=== PATIENT | female | born 1965 | race Caucasian/White ===

== ENCOUNTER 2017-01-21 18:09 | Emergency (ER) | payer OTHER ==
[~2017-01-21] VITALS: Ht 162.6 cm; Wt 86.0 kg
[~2017-01-21 18:09] MED LIST: BACT2OIN TOP; BENA25TA8 PO; DICY1TAB26 PO; PERC5TAB12 PO; PRED50TA PO; RANI150 PO; ZOFR4TAB3 SL
[2017-01-21 18:11] VITALS: BP 137/72; PULSE 76; RESP 17; TEMP 98.4; O2SAT 96
[2017-01-21] MEDS ORDERED: OMEP20TA PO (18:52)
[2017-01-21] MEDS ORDERED: RANI300T PO (18:52)
[2017-01-21] MEDS ORDERED: ASPI-110 PO (18:52)
[2017-01-21] MEDS ORDERED: GEMF600T PO (18:52)
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
[2017-01-21] MEDS ORDERED: oxyCODONE/ACETAMINOPHEN 5 MG/325 MG TAB PO ONE (20:45)
[2017-01-21] MEDS ORDERED: ONDANSETRON ODT 4 MG TAB PO ONE (21:00)
[2017-01-21 21:16] VITALS: BP 120/80
== END 2017-01-21 21:20 | disposition home or self-care (01) ==
LOC: NEPD 18:09
DX: S16.1XXA Strain of muscle, fascia and tendon at neck level, initial encounter (principal); V43.52XA Car driver injured in collision with other type car in traffic accident, initial encounter; Y92.414 Local residential or business street as the place of occurrence of the external cause
CPT/HCPCS: 70450; 72125; 99285

== ENCOUNTER 2018-01-23 23:45 | Observation (INO) ==
[2018-01-24] MEDS ORDERED: Sodium Chlor 0.9% Inj 500 ML IV.SIG ONE (00:36)
--- NOTE | 2018-01-24 00:55 | ED ---
HPI General Chief complaint: Chest Pain Stated complaint: chest pain, shoulder pain Time Seen by Provider: 01/24/18 00:36 Source: patient Limitations: no limitations History of Present Illness HPI narrative: The patient is a 52 year old female who presents to the [facility] emergency department with a history of right sided chest pain and shoulder pain that began 2 days. It is severe. It is coming and going. She also has right sided upper abdominal pain that began 3 weeks ago. The pain is worse with eating both in her abdomen and in her chest. She has had n/v x2 today. She has associated shortness of breath. She has a hiatal hernia and is going to have surgery for it 03/[address] Stockton. The patient denies any history of fever, cough, congestion, neck pain, worsening diarrhea (she has this chronically), urinary symptoms, or neurologic symptoms. The patient denies having any prior history of coronary artery disease, DVT, or PE. She denies any family history of DVT or PE. She denies having any lower extremity edema, calf pain, or erythema. The patient denies having any prior history of hypertension, however she does have a history of hyperlipidemia. She denies any history of diabetes. As the patient was being evaluated in the emergency department, the patient reported on reevaluation that her pain was beginning to radiate into the left side of the chest. She also reports having an associated aching sensation in her right upper extremity. LMP: s/p hysterectomy Related Data Home Medications Medication Instructions Recorded Confirmed hydroxyzine pamoate [Vistaril] 25 mg PO Q6-8H PRN 01/24/18 01/24/18 omeprazole 20 mg PO DAILY 01/24/18 01/24/18 rosuvastatin [Crestor] 20 mg PO DAILY 01/24/18 01/24/18 Allergies Allergy/AdvReac Type Severity Reaction Status Date / Time hydromorphone Allergy Severe N/V, SOB, Unverified 01/21/17 18:49 SHAKY *MDRO Multi-Drug Resistant AdvReac Unknown Uncoded 01/21/17 18:49 Organism Review of Systems ROS: all other systems reviewed are negative [facility] Medical History Medical History Hiatal hernia (Acute) Ovarian mass, left (Acute) Surgical History Surgical History History of foot surgery (Acute) History of partial hysterectomy (Acute) History of tonsillectomy (Acute) Social History Social History Substance History: No History of Abuse Second Hand Smoke Exposure: No Smoking Status: Never smoker How Often Do You Have a Drink Containing Alcohol: 2 to 4 times a month Recent Travel in [facility] within the Last 8 Weeks: No Recent Out of Country Travel within the Last 8 Weeks: No Immunization History Tetanus Immunization: >5 Years Hx Influenza Vaccine This Season: No Exam Const General: cooperative, well developed and acute distress (Related to chest pain. ) mild Nutritional Appearance: overweight Orientation: alert, awake and oriented x3 HENMT Head: normocephalic and atraumatic Nose: no nasal discharge and no epistaxis Mouth: moist mucous membranes Throat: posterior oropharynx normal and uvula midline Eyes Sclera: normal sclerae Pupils: PERRL Neck Neck: no meningeal signs, trachea midline and no JVD Resp Effort & Inspection: no use of accessory muscles Auscultation: clear to auscultation bilaterally Cardio Rate: regular rate Rhythm: regular rhythm Heart Sounds: no murmurs GI Inspection: non-distended Palpation: soft, no hepatosplenomegaly, no guarding, not rigid and tender in the epigastrum and in the RUQ; not in the LLQ, not in the RLQ, not in the LUQ, not at McBurney's point, Quiles's sign negative and with no rebound tenderness Auscultation: normal bowel sounds Back/Spine/Pelvis Back: no CVA tenderness Thoracic/Lumbar Spine: other (Tenderness on palpation of the right upper trapezius musculature. No spasm noted.) Skin General: dry skin (warm) Neuro General: alert, awake, oriented x3 and other (Grossly nonfocal.) Speech: speech normal Motor: no movement abnormalities noted Extrem General: normal to inspection, no calf tenderness, no clubbing, no cyanosis and no edema Psych Mood: congruent mood Affect: normal affect Judgment: judgment good Course Initial Documented Vital Signs Temperature 98.3 F 01/24/18 00:16 Pulse Rate 76 01/24/18 00:16 Respiratory Rate 16 01/24/18 00:16 Blood Pressure 189/82 H 01/24/18 00:16 Pulse Oximetry 97 01/24/18 00:16 Last Documented Vital Signs Temperature 98.4 F 01/24/18 07:44 Pulse Rate 69 01/24/18 07:44 Respiratory Rate 18 01/24/18 07:44 Blood Pressure 116/86 01/24/18 07:44 Pulse Oximetry 98 01/24/18 07:44 Clinical Decision Support PERC Rule Age greater than or equal to 50: Yes HR greather than or equal to 100: No Sa02 on room air is less than 95%: No Unilateral Leg Swelling: No Hemoptysis: No Recent Surgery or Trauma: No Prior PE or DVT: No Hormone Use: No Wells' Criteria Questions Clinical Signs and Symptoms of DVT: No PE is primary diagnosis or equally likely: No Heart Rate greater than 100: No Immobilized at least 3 days or Surgery in previous 4 weeks: No Previous, objectively diagnosed PE or DVT: No Hemoptysis: No Malignancy with treatment within 6 months or palliative: No Wells' Criteria Score Wells' Criteria Score: 0 Medical Decision Making MDM Narrative Medical decision making narrative: During the course of the patient's emergency department visit, the patient's history, examination, and differential diagnosis were reviewed with the patient. The patient was placed on a monitoring engineer with oximetry and frequent blood pressure monitoring. The patient had IV access obtained and blood work sent for analysis. A diagnostic evaluation was started regarding the patient's chest pain. The patient was initially provided normal saline IV fluids, aspirin 324 mg p.o. x1, sublingual nitroglycerin x1, nitroglycerin 1 inch the chest wall. The patient's diagnostic studies are remarkable for a white count of 7.2, hemoglobin 13.3, platelets are 251 with 12.5 monocytes, PT PTT within normal limits, d-dimer is less than 0.50 decreasing likelihood of pulmonary embolism in this patient with no other significant risk factors. Chemistry is remarkable for chloride of 108, GFR 73, cardiac enzymes within normal limits, BNP 24, lipase 219. Urinalysis showed no acute abnormality. CHEST X-RAY: No infiltrate, pneumothorax or mediastinal widening. Showed atelectasis in the left lung base, no other acute abnormality, CT scan of the abdomen and pelvis showed no acute abnormality. The patient was agreeable with the plan to proceed with admission to the chest pain center for rule out serial cardiac enzyme protocol followed by stress testing. The patient's results were discussed with the patient, including the plan of care. I explained that further testing and/ or monitoring is indicated based on the patient's history, examination, and/ or laboratory findings. Therefore, I recommended admission for additional evaluation. The patient expressed understanding and was agreeable with this plan. The patient was admitted to the hospital in stable condition and sent to a bed under the care of the [facility]. Medical Screen Exam Complete: Yes Emergency Medical Condition: Yes Differential Diagnosis Differential Diagnosis: Acid reflux, versus biliary colic, versus acute cholecystitis, versus pancreatitis, versus acute coronary syndrome, versus pulmonary embolism, versus pneumothorax, versus pneumonia Medical Records Medical records reviewed: Yes I reviewed the patient's medical records. Lab Data Lab results reviewed: Yes I reviewed the patient's lab results. Result diagrams: 01/24/18 00:45 01/24/18 00:45 Lab Results 01/24/18 01/24/18 01/24/18 Range/Units 00:45 00:45 00:45 WBC 7.2 (4.0-11.0) th/mm3 RBC 4.39 (4.00-5.30) mil/mm3 Hgb 13.3 (11.6-15.3) gm/dL Hct 38.0 (35.0-46.0) % MCV 86.5 (80.0-100.0) fL MCH 30.3 (27.0-34.0) pg MCHC 35.0 (32.0-36.0) % RDW 13.0 (11.6-17.2) % Plt Count 251 (150-450) th/mm3 MPV 6.9 L (7.0-11.0) fL Neut % (Auto) 45.0 (16.0-70.0) % Lymph % (Auto) 39.3 (9.0-44.0) % [place] % (Auto) 12.5 H (0.0-8.0) % Eos % (Auto) 2.1 (0.0-4.0) % Baso % (Auto) 1.1 (0.0-2.0) % Neut # (Auto) 3.2 (1.8-7.7) th/mm3 Lymph # (Auto) 2.8 (1.0-4.8) th/mm3 [place] # (Auto) 0.9 (0.0-0.9) th/mm3 Eos # (Auto) 0.2 (0.0-0.4) th/mm3 Baso # (Auto) 0.1 (0.0-0.2) th/mm3 WBC Differential . Differential Comment Auto diff final PT 10.0 (9.8-11.6) sec INR 1.0 Ratio APTT 26.6 (24.3-30.1) sec D-Dimer Quant (PE/DVT) 0.30 (0.00-0.50) mg/L FEU Sodium 143 (136-145) meq/L Potassium 4.0 (3.5-5.1) meq/L Chloride 108 H (98-107) meq/L Carbon Dioxide 23.3 (21.0-32.0) meq/L Anion Gap 12 (5-15) meq/L BUN 15 (7-18) mg/dL Creatinine 0.83 (0.50-1.00) mg/dL Estimated GFR 73 L (>89) mL/min Random Glucose 92 (74-106) mg/dL Calcium 8.5 (8.5-10.1) mg/dL Magnesium 1.9 (1.5-2.5) mg/dL Total Bilirubin 0.3 (0.2-1.0) mg/dL AST 26 (15-37) U/L ALT 32 (10-53) U/L Alkaline Phosphatase 109 (45-117) U/L Total Creatine Kinase 96 (26-192) U/L Troponin I Less than 0.02 L (0.02-0.05) ng/mL B-Natriuretic Peptide (0-100) pg/mL Total Protein 7.3 (6.4-8.2) g/dL Albumin 3.5 (3.4-5.0) g/dL Lipase 219 (73-393) U/L Urine Color (Yellw/Straw) Urine Clarity (Clear) Urine pH (5.0-8.5) Ur Specific [place] (1.002-1.035) Urine Protein (Neg-Trace) mg/dL Urine Glucose (UA) (Negative) mg/dL Urine Ketones (Negative) mg/dL Urine Occult Blood (Negative) Urine Nitrate (Negative) Urine Bilirubin (Negative) Urine Urobilinogen (Less than 2) mg/dL Ur Leukocyte Esterase (Negative) Urine RBC (0-3) /hpf Urine WBC (0-5) /hpf Ur Squamous Epith Cells (0-5) /hpf Urine Mucus (Occasional) /lpf Micro UA Comment Ur Microscopic Review Urine Culture Comments 01/24/18 01/24/18 01/24/18 Range/Units 00:45 04:21 05:10 WBC (4.0-11.0) th/mm3 RBC (4.00-5.30) mil/mm3 Hgb (11.6-15.3) gm/dL Hct (35.0-46.0) % MCV (80.0-100.0) fL MCH (27.0-34.0) pg MCHC (32.0-36.0) % RDW (11.6-17.2) % Plt Count (150-450) th/mm3 MPV (7.0-11.0) fL Neut % (Auto) (16.0-70.0) % Lymph % (Auto) (9.0-44.0) % [place] % (Auto) (0.0-8.0) % Eos % (Auto) (0.0-4.0) % Baso % (Auto) (0.0-2.0) % Neut # (Auto) (1.8-7.7) th/mm3 Lymph # (Auto) (1.0-4.8) th/mm3 [place] # (Auto) (0.0-0.9) th/mm3 Eos # (Auto) (0.0-0.4) th/mm3 Baso # (Auto) (0.0-0.2) th/mm3 WBC Differential Differential Comment PT (9.8-11.6) sec INR Ratio APTT (24.3-30.1) sec D-Dimer Quant (PE/DVT) (0.00-0.50) mg/L FEU Sodium (136-145) meq/L Potassium (3.5-5.1) meq/L Chloride (98-107) meq/L Carbon Dioxide (21.0-32.0) meq/L Anion Gap (5-15) meq/L BUN (7-18) mg/dL Creatinine (0.50-1.00) mg/dL Estimated GFR (>89) mL/min Random Glucose (74-106) mg/dL Calcium (8.5-10.1) mg/dL Magnesium (1.5-2.5) mg/dL Total Bilirubin (0.2-1.0) mg/dL AST (15-37) U/L ALT (10-53) U/L Alkaline Phosphatase (45-117) U/L Total Creatine Kinase 74 (26-192) U/L Troponin I Less than 0.02 L (0.02-0.05) ng/mL B-Natriuretic Peptide 24 (0-100) pg/mL Total Protein (6.4-8.2) g/dL Albumin (3.4-5.0) g/dL Lipase (73-393) U/L Urine Color Colorless (Yellw/Straw) Urine Clarity Clear (Clear) Urine pH 6.0 (5.0-8.5) Ur Specific [place] 1.026 (1.002-1.035) Urine Protein Negative (Neg-Trace) mg/dL Urine Glucose (UA) Negative (Negative) mg/dL Urine Ketones Negative (Negative) mg/dL Urine Occult Blood Negative (Negative) Urine Nitrate Negative (Negative) Urine Bilirubin Negative (Negative) Urine Urobilinogen Less than 2 (Less than 2) mg/dL Ur Leukocyte Esterase Negative (Negative) Urine RBC Less than 1 (0-3) /hpf Urine WBC Less than 1 (0-5) /hpf Ur Squamous Epith Cells <1 (0-5) /hpf Urine Mucus Few H (Occasional) /lpf Micro UA Comment Culture not ind Ur Microscopic Review Not Reportable Urine Culture Comments Culture not ind Imaging Data Radiologist's impression: Chest X-Ray 01/24/18 00:36 CONCLUSION: 1. Minimal left lung base airspace disease, likely atelectasis. Abdomen/Pelvis CT 01/24/18 02:36 CONCLUSION: 1. No acute CT abnormality in the abdomen or pelvis. 2. Normal appendix. 3. Hepatic steatosis. 4. Colonic diverticulosis without inflammatory change to suggest diverticulitis. Discharge Plan Discharge Disposition Patient Disposition: 30 Still Patient Discharge Details Diagnosis: Chest pain, rule out acute myocardial infarction Physicians Team ED Provider: Lynsey Ba Primary Care Provider: Isreal Carvalho Attending Provider: Elvin Townsend Discharge Interventions Interventions: ED Discharge Assessment Last Done: 01/24/18 04:15 Status ED Status: Left Department Discharge Information Discharge Date/Time: 01/24/18 04:17
[2018-01-24 01:03] LABS: Baso # (Auto) 0.1 th/mm3 (0.0-0.2); Baso % (Auto) 1.1 % (0.0-2.0); Eos # (Auto) 0.2 th/mm3 (0.0-0.4); Eos % (Auto) 2.1 % (0.0-4.0); Hemoglobin 13.3 gm/dL (11.6-15.3); Lymph # (Auto) 2.8 th/mm3 (1.0-4.8); Lymph % (Auto) 39.3 % (9.0-44.0); Mean Corpuscular Hemoglobin 30.3 pg (27.0-34.0); Mean Corpuscular Volume 86.5 fL (80.0-100.0); Mean Platelet Volume 6.9 fL (7.0-11.0); Mono # (Auto) 0.9 th/mm3 (0.0-0.9); Mono % (Auto) 12.5 % (0.0-8.0); Neut # (Auto) 3.2 th/mm3 (1.8-7.7); Platelet Count 251 th/mm3 (150-450); Red Blood Count 4.39 mil/mm3 (4.00-5.30); White Blood Count 7.2 th/mm3 (4.0-11.0)
--- NOTE | 2018-01-24 01:05 | XR ---
EXAM DATE: 01/24/2018 12:36 AM EDT AGE/SEX: 52 years / Female INDICATIONS: Chest pain. CLINICAL DATA: This is the patient's initial encounter. Patient reports that signs and symptoms have been present for 1 day and indicates a pain score of 6/10. MEDICAL/SURGICAL HISTORY: None. None. COMPARISON: No prior exams available for comparison. FINDINGS: Minimal airspace disease at the left lung base. The cardiomediastinal contours are unremarkable. Oss eous structures are intact. CONCLUSION: 1. Minimal left lung base airspace disease, likely atelectasis. Electronically signed by: Niitn Cohen MD 01/24/2018 1:04 AM EDT
[2018-01-24 01:22] LABS: Activated Partial Thrombo Time 26.6 sec (24.3-30.1)
[2018-01-24 01:25] LABS: D-Dimer 0.3 mg/L FEU (0.00-0.50)
[2018-01-24 01:28] LABS: Alanine Aminotransferase 32 U/L (10-53); Albumin 3.5 g/dL (3.4-5.0); Alkaline Phosphatase 109 U/L (45-117); Anion Gap 12 meq/L (5-15); Aspartate Aminotransferase 26 U/L (15-37); Blood Urea Nitrogen 15 mg/dL (7-18); Calcium 8.5 mg/dL (8.5-10.1); Carbon Dioxide 23.3 meq/L (21.0-32.0); Chloride 108 meq/L (98-107); Glomerular Filtration Rate 73 mL/min (>89); Glucose,Random 92 mg/dL (74-106); Lipase 219 U/L (73-393); Magnesium 1.9 mg/dL (1.5-2.5); Sodium 143 meq/L (136-145); Total Protein 7.3 g/dL (6.4-8.2)
[2018-01-24 01:29] LABS: Creatine Kinase 96 U/L (26-192)
--- NOTE | 2018-01-24 03:39 | CT ---
EXAM DATE: 01/24/2018 2:41 AM EDT AGE/SEX: 52 years / Female INDICATIONS: Right upper qaudrant pain. CLINICAL DATA: This is the patient's initial encounter. Patient reports that signs and symptoms have been present for 1 day and indicates a pain score of 9/10. MEDICAL/SURGICAL HISTORY: Hiatal hernia. Tonsillectomy. Partial hysterectomy ORAL CONTRAST: No oral contrast ingested. RADIATION DOSE: 13.36 CTDI (mGy) COMPARISON: No prior exams available for comparison. TECHNIQUE: Multiple contiguous axial images were obtained through the abdomen and pelvis following b olus infusion of 95 ml Omnipaque 350 (iohexol) nonionic water-soluble contrast as a cumulative dose for multiple exams. No oral contrast ingested. Using automated exposure control and adjustment of t he mA and/or kV according to patient size, radiation dose was kept as low as reasonably achievable to obtain optimal diagnostic quality images. DICOM format image data is available electronically for r eview and comparison. FINDINGS: LOWER LUNGS: The visualized lower lungs are clear. LIVER: Diffusely decreased hepatic density without intrahepatic ductal dilatation or significant foc al mass. Gallbladder is decompressed. SPLEEN: Homogeneous density without enlargement. PANCREAS: Unremarkable without mass or calcification. KIDNEYS: Kidneys demonstrate symmetrical enhancement and are symmetrical in size without evidence fo r radiopaque renal calculi or hydronephrosis. ADRENAL GLANDS: Unremarkable. AORTA: Anabel-aneurysmal. BOWEL/MESENTERY: Mild sigmoid diverticulosis. Scattered colonic diverticula. No significant inflamma tory change to suggest diverticulitis. Appendix is visualized and normal in appearance. Remainder of the bowel is normal in caliber without evidence for obstruction. No free fluid or drainable fluid col lections. No free air. ABDOMINAL WALL: Intact. RETROPERITONEUM: No evidence of adenopathy in the retrocrural, para-aortic, or deep pelvic regions. BLADDER: Contours are smooth. REPRODUCTIVE: No abnormal masses or calcifications seen. BONY STRUCTURES: Unremarkable. CONCLUSION: 1. No acute CT abnormality in the abdomen or pelvis. 2. Normal appendix. 3. Hepatic steatosis. 4. Colonic diverticulosis without inflammatory change to suggest diverticulitis. Electronically signed by: Nitin Cohen MD 01/24/2018 3:38 AM EDT
[2018-01-24] MEDS: Acetaminophen 500 MG Tablet PO PRN ×2 (04:57→08:53)
[2018-01-24 05:07] LABS: Creatine Kinase 74 U/L (26-192)
[2018-01-24 05:26] LABS: Bilirubin,Urine Negative (Negative); Clarity,Urine Clear (Clear); Color,Urine Colorless (Yellw/Straw); Glucose,Urine (UA) Negative (Negative); Leukocyte Esterase,Urine Negative (Negative); Mucus,Urine Few /lpf (Occasional); Nitrite,Urine Negative (Negative); Specific Gravity,Urine 1.026 (1.002-1.035); Squamous Epithelial Cell,Urine <1 /hpf (0-5)
[2018-01-24 07:46] VITALS: BP 116/86; PULSE 69; RESP 18; TEMP 98.4; O2SAT 98
[2018-01-24 07:47] LABS: Creatine Kinase 99 U/L (26-192)
--- NOTE | 2018-01-24 08:56 | ECG ---
Date Performed: 01/24/2018 Time Performed: 07:06:40 PTAGE: 52 years EKG: Sinus rhythm POSSIBLE RIGHT VENTRICULAR CONDUCTION DELAY NONSPECIFIC T-WAVE ABNORMALITY BORDERLINE ECG Since PREVIOUS TRACING , no significant change noted DOCTOR: Lucia Orozco Interpretating Date/Time 01/24/2018 08:56:31
--- NOTE | 2018-01-24 08:57 | ECG ---
Date Performed: 01/24/2018 Time Performed: 04:23:55 PTAGE: 52 years EKG: Sinus rhythm POSSIBLE RIGHT VENTRICULAR CONDUCTION DELAY BORDERLINE ECG Since PREVIOUS TRACING , no significant change noted DOCTOR: Lucia Orozco Interpretating Date/Time 01/24/2018 08:57:02
--- NOTE | 2018-01-24 08:58 | ECG ---
Date Performed: 01/24/2018 Time Performed: 00:33:24 PTAGE: 52 years EKG: Sinus rhythm LOW QRS VOLTAGE IN PRECORDIAL LEADS POSSIBLE RIGHT VENTRICULAR CONDUCTION DELAY BORDERLINE ECG Since PREVIOUS TRACING , no significant change noted DOCTOR: Lucia Orozco Interpretating Date/Time 01/24/2018 08:57:47
[2018-01-24] MEDS ORDERED: Regadenoson Inj 0.4 MG/5 ML Syringe IV.PUSH ONE (09:21)
--- NOTE | 2018-01-24 11:04 | NM ---
EXAM DATE: 01/24/2018 9:32 AM EDT AGE/SEX: 52 years / Female INDICATIONS:Angina. . Right chest pain radiating to the right shoulder with nausea and vomiting. CLINICAL DATA: This is the patient's initial encounter. Patient reports that signs and symptoms have been present for 2 days and indicates a pain score of 8/10. MEDICAL/SURGICAL HISTORY: Hiatal hernia. Hysterectomy. Tonsillectomy. COMPARISON: No prior exams available for comparison. DOSE: 8.3 mCi Tc 99m Myoview at rest 26.9 mCi [id number] at stress 0.4 mg Lexiscan STRESS SYMPTOMS: Dyspnea, chest tightness and headache. EJECTION FRACTION: 69 % TECHNIQUE: The patient underwent pharmacologic stress with infusion of prescribed dose. Continuous ECG tracing was monitored during stress. Gated SPECT imaging was performed after stress and conventi onal SPECT imaging was performed at rest. The examination was performed on a SPECT/CT scanner, both attenuation and non-corrected datasets were reviewed. FINDINGS: Distribution: The maximum perfused segment at stress is in the anterior wall. Perfusion Study: The pattern of perfusion at stress is within normal limits. As a summed stress s core of 2. Gated Study: There are intact wall motion and wall thickening without hypokinetic or dyskinetic segm ents. The ejection fraction is calculated at 69%. RISK CATEGORY: Low (<1% Annual Motality Rate) CONCLUSION: 1. No fixed or reversible wall defect to suggest ischemia or infarction. 2. Normal wall motion and calculated ejection fraction. Electronically signed by: Alberto Hancock MD 01/24/2018 11:03 AM EDT
--- NOTE | 2018-01-24 11:39 | P.HPCA ---
History of Present Illness Primary Care Physician: Isreal Carvalho Chief Complaint: Chest pain History of Present Illness: This is a 52-year-old female that presents to ED with history of hiatal hernia and hyperlipidemia with complaint of chest discomfort. She states she has had chest discomforts in the past and talked it up as related to hiatal hernia. States she is scheduled with Dr. Stockton to have surgery to repair hiatal hernia March 03. However the discomfort was different than the typical discomfort. There is a sharp discomfort also began to have a squeezing sensation that began last night at home. Also for the last couple days she has had right shoulder discomfort and was worried that it might have been related to gallbladder or ulcer or hiatal hernia. She felt a little nauseous. The chest discomfort was on the right side of her chest and at times radiate to the center. Lasted for several hours. She was also short of breath with it. She states that her general surgeon was concerned at one point that it may be gallbladder related as well and states that she had a gallbladder ultrasound within the last 2 weeks and that it was normal. Currently feeling okay. Denies , states she had a hysterectomy. History of hiatal hernia and hyperlipidemia. Denies diabetes, CAD, and hypertension. States that her father had an AZ in his late 50s and age 60 of an AZ. She is a lifetime non-smoker. She has a a few drinks 4 times a month. Denies illicit drug use. - Diagnosis (1) Chest pain (2) History of hiatal hernia (3) Hyperlipidemia (4) GERD (gastroesophageal reflux disease) Review of Systems General: Patient denies fevers, chills, and recent travel. HEENT: Patient denies headache, sore throat, difficulty swallowing. Cardiovascular: Has the chest discomfort as mentioned above. Denies sensation of heart beating rapidly or irregularly. No syncope. Denies diaphoresis. Respiratory: She was short of breath. Denies inspirational chest discomfort. Denies coughing wheezing or hemoptysis. GI: She was nauseous. Patient denies vomiting, diarrhea, abdominal pain, bloody stools. Musculoskeletal: Patient denies joint pain or edema. Denies calf pain or edema. Neurovascular: Patient denies numbness, tingling, weakness in extremities. Denies headache. Endocrine: Denies polyuria and polydipsia. Hematologic: Denies easy bruising. Skin: Denies rash or itching. PMFSH - History History Provided By: Patient - Medical History Medical History: Medical History (Last Updated 01/24/18 @ 01:27 by Lynsey Ba MD) Hiatal hernia Ovarian mass, left - Surgical History Surgical History: Surgical History (Last Updated 01/24/18 @ 01:28 by Lynsey Ba MD) History of foot surgery History of partial hysterectomy History of tonsillectomy - Tobacco History Second Hand Smoke Exposure: No Smoking Status: Never smoker - Alcohol History How Often Do You Have a Drink Containing Alcohol: 2 to 4 times a month - Substance Use History Substance History: No History of Abuse - Travel History Recent Travel in the [place] Within the Last 8 Weeks: No Recent Travel Out of the Country Within the Last 8 Weeks: No - Immunization History Tetanus Immunization: >5 Years Hx Influenza Vaccine This Season: No Medications and Allergies Active Medications: Active Medications Acetaminophen (Tylenol) 500 mg PO Q4H PRN PRN Reason: HEADACHE Last Admin: 01/24/18 08:53 Dose: 500 mg Nitroglycerin (Nitro-Bid 2% Oint) 1 inch TOPICAL Q6HR KOJO Last Admin: 01/24/18 06:51 Dose: 1 inch Sodium Chloride (Ns Flush) 2 ml IV.FLUSH UNSCH PRN PRN Reason: FLUSH AFTER USING IV ACCESS Sodium Chloride (Ns Flush) 2 ml IV.FLUSH BID KOJO Last Admin: 01/24/18 08:54 Dose: 2 ml Sodium Chloride (Ns Flush) 2 ml IV.FLUSH PRN PRN PRN Reason: FLUSH AFTER USING IV ACCESS Allergies Allergy/AdvReac Type Severity Reaction Status Date / Time hydromorphone Allergy Severe N/V, SOB, Unverified 01/21/17 18:49 SHAKY *MDRO Multi-Drug Resistant AdvReac Unknown Uncoded 01/21/17 18:49 Organism Home Medications Medication Instructions Recorded Confirmed Type hydroxyzine pamoate [Vistaril] 25 mg PO Q6-8H PRN 01/24/18 01/24/18 History omeprazole 20 mg PO DAILY 01/24/18 01/24/18 History rosuvastatin [Crestor] 20 mg PO DAILY 01/24/18 01/24/18 History Exam Vital signs: Vital Signs 01/24/18 00:16 01/24/18 00:39 01/24/18 03:28 Temperature 98.3 F Pulse Rate 76 76 Respiratory Rate 16 15 Blood Pressure 189/82 H 155/81 H Pulse Oximetry 97 98 01/24/18 04:59 01/24/18 07:44 01/24/18 08:00 Temperature 97.7 F 98.4 F Pulse Rate 62 69 Respiratory Rate 16 18 18 Blood Pressure 121/79 116/86 Pulse Oximetry 97 98 98 Intake & Output 01/23/18 01/24/18 01/24/18 18:59 06:59 18:59 Intake Total 500 / 500 Balance 500 / 500 Weight 87.997 kg Intake: IV 500 / 500 NS Inj 500 ML @ Wide Open IV. 500 / 500 SIG ONCE ONE Rx#:[id number] Other: Date of Last Bowel Movement 01/23/18 01/23/18 Narrative: GENERAL: This is a well-nourished, well-developed patient, in no apparent distress. Patient speaks in clear complete sentences. Patient is pleasant. HEENT: Head is atraumatic and normocephalic. Neck is supple without lymphadenopathy and trachea is midline. No JVD or carotid bruits. CARDIOVASCULAR: Regular rate and rhythm without murmurs, gallops, or rubs. RESPIRATORY: Clear to auscultation. Breath sounds equal bilaterally. No wheezes , rales, or rhonchi. Chest wall is nontender. No use of accessory muscles. GASTROINTESTINAL: Abdomen is nontender, nondistended. Abdomen soft. No obvious pulsatile mass or bruit. No CVA tenderness. Strong femoral pulses bilaterally. Normal bowel sounds in all quadrants. MUSCULOSKELETAL: Patient is moving upper and lower extremities freely. No calf tenderness or edema, no Homans sign. Strong pulses in upper and lower extremities. NEUROLOGICAL: Patient is alert and oriented. Cranial nerves 2-12 are grossly intact. No focal deficits and speech is clear. SKIN: No rash and turgor is normal. Results 01/24/18 00:45 01/24/18 00:45 Cardiac Enzymes 01/24/18 01/24/18 01/24/18 Range/Units 00:45 00:45 04:21 AST 26 (15-37) U/L Troponin I Less than 0.02 L Less than 0.02 L (0.02-0.05) ng/mL B-Natriuretic Peptide 24 (0-100) pg/mL 01/24/18 Range/Units 06:50 AST (15-37) U/L Troponin I Less than 0.02 L (0.02-0.05) ng/mL B-Natriuretic Peptide (0-100) pg/mL Coagulation 01/24/18 01/24/18 Range/Units 00:45 00:45 PT 10.0 (9.8-11.6) sec APTT 26.6 (24.3-30.1) sec B-Natriuretic Peptide 24 (0-100) pg/mL CBC 01/24/18 Range/Units 00:45 WBC 7.2 (4.0-11.0) th/mm3 RBC 4.39 (4.00-5.30) mil/mm3 Hgb 13.3 (11.6-15.3) gm/dL Hct 38.0 (35.0-46.0) % Plt Count 251 (150-450) th/mm3 Neut # (Auto) 3.2 (1.8-7.7) th/mm3 Lymph # (Auto) 2.8 (1.0-4.8) th/mm3 [place] # (Auto) 0.9 (0.0-0.9) th/mm3 Eos # (Auto) 0.2 (0.0-0.4) th/mm3 Baso # (Auto) 0.1 (0.0-0.2) th/mm3 Comprehensive Metabolic Panel 01/24/18 Range/Units 00:45 Sodium 143 (136-145) meq/L Potassium 4.0 (3.5-5.1) meq/L Chloride 108 H (98-107) meq/L Carbon Dioxide 23.3 (21.0-32.0) meq/L BUN 15 (7-18) mg/dL Creatinine 0.83 (0.50-1.00) mg/dL Calcium 8.5 (8.5-10.1) mg/dL AST 26 (15-37) U/L ALT 32 (10-53) U/L Alkaline Phosphatase 109 (45-117) U/L Total Protein 7.3 (6.4-8.2) g/dL Albumin 3.5 (3.4-5.0) g/dL Intake and Output 01/23/18 01/24/18 01/24/18 22:59 06:59 14:59 Intake Total 500 / 500 Balance 500 / 500 Intake: IV 500 / 500 NS Inj 500 ML @ Wide Open IV. 500 / 500 SIG ONCE ONE Rx#:[id number] Other: Date of Last Bowel Movement 01/23/18 01/23/18 Weight 87.997 kg - Imaging and Cardiology Imaging: Impressions Chest X-Ray 01/24/18 00:36 CONCLUSION: 1. Minimal left lung base airspace disease, likely atelectasis. Abdomen/Pelvis CT 01/24/18 02:36 CONCLUSION: 1. No acute CT abnormality in the abdomen or pelvis. 2. Normal appendix. 3. Hepatic steatosis. 4. Colonic diverticulosis without inflammatory change to suggest diverticulitis. Myocardial Perfusion Scan Nuc Med 01/24/18 08:23 CONCLUSION: 1. No fixed or reversible wall defect to suggest ischemia or infarction. 2. Normal wall motion and calculated ejection fraction. EKG interpretations - EKG EKG shows: sinus rhythm (EKGs are sinus rhythm without significant ST segment depressions or elevations.) Caprini VTE Risk Assessment Caprini VTE Risk Assessment: No/Low Risk (score <= 1) Caprini Risk Assessment Model: Point Value = 1 Point Value = 2 Point Value = 3 Point Value = 5 Age 41-60 Minor surgery BMI > 25 kg/m2 Swollen legs Varicose veins or History of unexplained or recurrent spontaneous Oral contraceptives or hormone replacement Sepsis (< 1 month) Serious lung disease, including pneumonia (< 1 month) Abnormal pulmonary function Acute myocardial infarction Congestive heart failure (< 1 month) History of inflammatory bowel disease Medical patient at bed rest Age 61-74 Arthroscopic surgery Major open surgery (> 45 min) Laparoscopic surgery (> 45 min) Malignancy Confined to bed (> 72 hours) Immobilizing plaster cast Central venous access Age >= 75 History of VTE Family history of VTE Factor V Leiden Prothrombin [id number] Lupus anticoagulant Anticardiolipin antibodies Elevated serum homocysteine Heparin-induced thrombocytopenia Other congenital or acquired thrombophilia Stroke (< 1 month) Elective arthroplasty Hip, pelvis, or leg fracture Acute spinal cord injury (< 1 month) Prophylaxis Regimen: Total Risk Factor Score Risk Level Prophylaxis Regimen 0-1 Low Early ambulation 2 Moderate Order ONE of the following: *Sequential Compression Device (SCD) *Heparin 5000 units SQ BID 3-4 Higher Order ONE of the following medications: *Heparin 5000 units SQ TID *Enoxaparin/Lovenox 40 mg SQ daily (WT < 150 kg, CrCl > 30 mL/min) *Enoxaparin/Lovenox 30 mg SQ daily (WT < 150 kg, CrCl > 10-29 mL/min) *Enoxaparin/Lovenox 30 mg SQ BID (WT < 150 kg, CrCl > 30 mL/min) AND/OR *Sequential Compression Device (SCD) 5 or more Highest Order ONE of the following medications: *Heparin 5000 units SQ TID (Preferred with Epidurals) *Enoxaparin/Lovenox 40 mg SQ daily (WT < 150 kg, CrCl > 30 mL/min) *Enoxaparin/Lovenox 30 mg SQ daily (WT < 150 kg, CrCl > 10-29 mL/min) *Enoxaparin/Lovenox 30 mg SQ BID (WT < 150 kg, CrCl > 30 mL/min) AND *Sequential Compression Device (SCD) Assessment and Plan - Assessment (1) Chest pain Code(s): R07.9 - Chest pain, unspecified Status: Acute (2) History of hiatal hernia Code(s): Z87.19 - Personal history of other diseases of the digestive system Status: Acute (3) Hyperlipidemia Code(s): E78.5 - Hyperlipidemia, unspecified Status: Acute (4) GERD (gastroesophageal reflux disease) Code(s): K21.9 - Gastro-esophageal reflux disease without esophagitis Status: Acute - Plan * Chest pain: Patient had serial cardiac enzymes and EKGs for ruling out purposes. She was evaluated by Dr. Orozco of cardiology in the chest pain center. States she would not pill walk on a treadmill subsequent Lexiscan has been ordered. She had when these little over a year ago with Dr. Dowling and states it was okay and has not followed up since. If her stress test is nonischemic today, she will be discharged home with instructions to follow-up with her surgeon and PCP. She may need follow-up with cardiology of her surgeon requires clearance. Return to ED for interval issues. * History of hiatal hernia: Follow-up with her general surgeon. * GERD: Continue medication. * Hyperlipidemia: Continue medication. Patient is stable at this time. She is agreeable to this plan. H&P: Quality - VTE Deep Vein Thrombosis/Pulmonary Embolism Present on Admission: No
--- NOTE | 2018-01-24 16:29 | TR ---
Date Performed: 01/24/2018 Time Performed: 09:50:24 DOCTOR: Lucia Orozco DRUG LIST: CLINICAL HISTORY: REASON FOR TEST: REASON FOR ENDING: OBSERVATION: CONCLUSION: Lexiscan stress test was performed under standard four minute protocol. Radionuclid e was injected one minute prior to ending the test. No electrocardiographic abormalities were present to suggest ischemia. Nuclear imaging and interpretation are pending. COMMENTS:
== END 2018-01-24 12:00 | disposition home or self-care (01) ==
LOC: NEDA 23:45 → NEPE 23:45 → NEDA 01-24 04:17 → NEPHCDU 01-24 04:34
PROVIDERS: ADMIT Internal Medicine Cardiovascular Disease; ATTEND Internal Medicine Cardiovascular Disease
DX: Z90.710 Acquired absence of both cervix and uterus; K44.9 Diaphragmatic hernia without obstruction or gangrene; R94.31 Abnormal electrocardiogram [ECG] [EKG]; E78.5 Hyperlipidemia, unspecified; Z16.24 Resistance to multiple antibiotics; R07.9 Chest pain, unspecified; K21.9 Gastro-esophageal reflux disease without esophagitis; Z82.49 Family history of ischemic heart disease and other diseases of the circulatory system

== ENCOUNTER 2018-01-26 20:11 | Observation (INO) ==
[2018-01-26] MEDS ORDERED: Famotidine PF Inj 20 MG/2 ML Vial IV.PUSH ONE (20:39)
[2018-01-26] MEDS ORDERED: Morphine Sulfate Inj 2 MG/ML Vial IV.PUSH ONE (20:39)
[2018-01-26] MEDS ORDERED: Sod Chloride 0.9% Inj 1,000 ML IV.CONT SCH (20:45)
--- NOTE | 2018-01-26 21:01 | ED ---
HPI General Chief Complaint: Chest Pain Stated Complaint: pain in side/back/chest Time Seen by Provider: 01/26/18 20:26 Source: patient Mode of arrival: ambulatory Limitations: no limitations History of Present Illness HPI narrative: 52-year-old female complains of right upper quadrant abdominal pain, right flank pain the right-sided chest pain. Patient states that the symptoms started a month ago. Patient states that the pain is sharp pain started on the right upper quadrant, right flank area with radiation to right shoulder area. Patient states that the pain has been constant for the past month. Patient states that the pain is worse with eating. Patient complaint intermittent nausea vomiting with the pain. Patient states that she has low- grade fever at home. Patient has history of elevated triglyceride level. Patient denies history hypertension, diabetes. Patient was seen by personal physician, organ tuner and surgeon. Patient had endoscopy done by Dr. Gaytan last month which showed hiatal hernia. Patient was seen in emergency room [address] scan abdomen pelvis done which was normal. Patient was admitted to the chest pain center and stress test were negative. Patient was referred to Dr. Stockton, local surgeon. Patient pending surgery March 03 for hiatal hernia. Patient was advised by Dr. Stockton to come to the emergency room today to be admitted and to have HIDA scan done and pending cholecystectomy surgery tomorrow. MD complaint: Reports abdominal pain Onset (ago): week(s) Pain Consistency: constant Location: Reports RUQ and R flank Severity: moderate Severity scale (1-10): 7 Quality: Reports sharp Radiation: Reports chest Migration to: Reports no migration Relieving factors: nothing Exacerbating factors: eating Associated symptoms: Reports nausea, vomiting and anorexia Related Data Home Medications Medication Instructions Recorded Confirmed hydroxyzine pamoate [Vistaril] 25 mg PO Q6-8H PRN 01/24/18 01/26/18 omeprazole 20 mg PO DAILY 01/24/18 01/26/18 rosuvastatin [Crestor] 20 mg PO DAILY 01/24/18 01/26/18 Allergies Allergy/AdvReac Type Severity Reaction Status Date / Time hydromorphone Allergy Severe N/V, SOB, Unverified 01/21/17 18:49 SHAKY *MDRO Multi-Drug Resistant AdvReac Unknown Uncoded 01/21/17 18:49 Organism Review of Systems ROS: all other systems reviewed are negative [facility] Medical History Medical History Hiatal hernia (Acute) Ovarian mass, left (Acute) Surgical History Surgical History History of foot surgery (Acute) History of partial hysterectomy (Acute) History of tonsillectomy (Acute) Social History Social History Substance History: No History of Abuse Second Hand Smoke Exposure: No Smoking Status: Never smoker How Often Do You Have a Drink Containing Alcohol: 2 to 4 times a month Recent Travel in [facility] within the Last 8 Weeks: No Recent Out of Country Travel within the Last 8 Weeks: No Immunization History Tetanus Immunization: Unsure Hx Influenza Vaccine This Season: No Exam Narrative Exam Narrative: GENERAL: Well-nourished, well-developed patient. SKIN: Focused skin assessment warm/dry. HEAD: Normocephalic. EYES: No scleral icterus. No injection or drainage. NECK: Supple, trachea midline. No JVD or lymphadenopathy. CARDIOVASCULAR: Regular rate and rhythm without murmurs, gallops, or rubs. RESPIRATORY: Breath sounds equal bilaterally. No accessory muscle use. GASTROINTESTINAL: Abdomen soft, non-tender, nondistended. MUSCULOSKELETAL: No cyanosis, or edema. BACK: Nontender without obvious deformity. No CVA tenderness. Course Initial Documented Vital Signs Temperature 97.4 F L 01/26/18 20:22 Pulse Rate 102 H 01/26/18 20:22 Respiratory Rate 16 01/26/18 20:22 Blood Pressure 153/78 H 01/26/18 20:22 Pulse Oximetry 97 01/26/18 20:22 Last Documented Vital Signs Temperature 97.4 F L 01/26/18 20:22 Pulse Rate 92 H 01/26/18 20:39 Respiratory Rate 18 01/26/18 20:39 Blood Pressure 167/83 H 01/26/18 20:39 Pulse Oximetry 96 01/26/18 20:39 Medical Decision Making MDM Narrative Medical decision making narrative: 52-year-old female with right upper quadrant abdominal pain, right flank pain with radiation to right chest. Patient will have HIDA scan done tonight and admit to surgery for cholecystectomy tomorrow Medical Screen Exam Complete: Yes Emergency Medical Condition: Yes Differential Diagnosis Differential Diagnosis: Differential diagnosis including cholecystitis, nephrolithiasis, pyelonephritis, pleurisy. Lab Data Lab results reviewed: Yes I reviewed the patient's lab results. Result diagrams: 01/26/18 20:55 01/26/18 20:55 Lab Results 01/26/18 01/26/18 01/26/18 Range/Units 20:55 20:55 20:55 WBC 7.9 (4.0-11.0) th/mm3 RBC 4.83 (4.00-5.30) mil/mm3 Hgb 14.5 (11.6-15.3) gm/dL Hct 42.3 (35.0-46.0) % MCV 87.6 (80.0-100.0) fL MCH 30.0 (27.0-34.0) pg MCHC 34.2 (32.0-36.0) % RDW 13.3 (11.6-17.2) % Plt Count 286 (150-450) th/mm3 MPV 6.6 L (7.0-11.0) fL Neut % (Auto) 48.8 (16.0-70.0) % Lymph % (Auto) 37.9 (9.0-44.0) % [place] % (Auto) 10.5 H (0.0-8.0) % Eos % (Auto) 1.9 (0.0-4.0) % Baso % (Auto) 0.9 (0.0-2.0) % Neut # (Auto) 3.9 (1.8-7.7) th/mm3 Lymph # (Auto) 3.0 (1.0-4.8) th/mm3 [place] # (Auto) 0.8 (0.0-0.9) th/mm3 Eos # (Auto) 0.2 (0.0-0.4) th/mm3 Baso # (Auto) 0.1 (0.0-0.2) th/mm3 WBC Differential . Differential Comment Auto diff final PT 9.7 L (9.8-11.6) sec INR 1.0 Ratio APTT 26.2 (24.3-30.1) sec Sodium (136-145) meq/L Potassium (3.5-5.1) meq/L Chloride (98-107) meq/L Carbon Dioxide (21.0-32.0) meq/L Anion Gap (5-15) meq/L BUN (7-18) mg/dL Creatinine (0.50-1.00) mg/dL Estimated GFR (>89) mL/min Random Glucose (74-106) mg/dL Calcium (8.5-10.1) mg/dL Total Bilirubin (0.2-1.0) mg/dL AST (15-37) U/L ALT (10-53) U/L Alkaline Phosphatase (45-117) U/L Troponin I Less than 0.02 L (0.02-0.05) ng/mL Total Protein (6.4-8.2) g/dL Albumin (3.4-5.0) g/dL Lipase (73-393) U/L 01/26/18 Range/Units 20:55 WBC (4.0-11.0) th/mm3 RBC (4.00-5.30) mil/mm3 Hgb (11.6-15.3) gm/dL Hct (35.0-46.0) % MCV (80.0-100.0) fL MCH (27.0-34.0) pg MCHC (32.0-36.0) % RDW (11.6-17.2) % Plt Count (150-450) th/mm3 MPV (7.0-11.0) fL Neut % (Auto) (16.0-70.0) % Lymph % (Auto) (9.0-44.0) % [place] % (Auto) (0.0-8.0) % Eos % (Auto) (0.0-4.0) % Baso % (Auto) (0.0-2.0) % Neut # (Auto) (1.8-7.7) th/mm3 Lymph # (Auto) (1.0-4.8) th/mm3 [place] # (Auto) (0.0-0.9) th/mm3 Eos # (Auto) (0.0-0.4) th/mm3 Baso # (Auto) (0.0-0.2) th/mm3 WBC Differential Differential Comment PT (9.8-11.6) sec INR Ratio APTT (24.3-30.1) sec Sodium 139 (136-145) meq/L Potassium 4.0 (3.5-5.1) meq/L Chloride 105 (98-107) meq/L Carbon Dioxide 22.5 (21.0-32.0) meq/L Anion Gap 12 (5-15) meq/L BUN 15 (7-18) mg/dL Creatinine 0.96 (0.50-1.00) mg/dL Estimated GFR 62 L (>89) mL/min Random Glucose 114 H (74-106) mg/dL Calcium 9.1 (8.5-10.1) mg/dL Total Bilirubin 0.4 (0.2-1.0) mg/dL AST 32 (15-37) U/L ALT 40 (10-53) U/L Alkaline Phosphatase 93 (45-117) U/L Troponin I (0.02-0.05) ng/mL Total Protein 8.2 D (6.4-8.2) g/dL Albumin 4.0 (3.4-5.0) g/dL Lipase 169 (73-393) U/L Discharge Plan Discharge Disposition Patient Disposition: 30 Still Patient Discharge Details Diagnosis: Gallbladder colic Physicians Team ED Provider: Jose Antonio Quiroga Primary Care Provider: UNKNOWN, Rxs /Orders / Referrals /Forms Prescriptions: No Action omeprazole 20 mg Capsule,Delayed Release(Dr/Ec) 20 mg PO DAILY RF: 0 hydroxyzine pamoate [Vistaril] 25 mg Capsule 25 mg PO Q6-8H PRN (Reason: Anxiety) RF: 0 rosuvastatin [Crestor] 5 mg Tablet 20 mg PO DAILY RF: 0 Discharge Instructions Patient Printed Instructions: Chest Pain (ED), Laparoscopic Cholecystectomy (DC ) Discharge Interventions Interventions: Vital Signs Last Done: 01/26/18 20:39 Status ED Status: With Doctor
[2018-01-26 21:12] LABS: Baso # (Auto) 0.1 th/mm3 (0.0-0.2); Baso % (Auto) 0.9 % (0.0-2.0); Eos # (Auto) 0.2 th/mm3 (0.0-0.4); Eos % (Auto) 1.9 % (0.0-4.0); Hematocrit 42.3 % (35.0-46.0); Hemoglobin 14.5 gm/dL (11.6-15.3); Lymph % (Auto) 37.9 % (9.0-44.0); Mean Corpuscular HGB Conc 34.2 % (32.0-36.0); Mean Corpuscular Volume 87.6 fL (80.0-100.0); Mean Platelet Volume 6.6 fL (7.0-11.0); Mono # (Auto) 0.8 th/mm3 (0.0-0.9); Mono % (Auto) 10.5 % (0.0-8.0); Neut # (Auto) 3.9 th/mm3 (1.8-7.7); Neut % (Auto) 48.8 % (16.0-70.0); Platelet Count 286 th/mm3 (150-450); Red Blood Count 4.83 mil/mm3 (4.00-5.30); Red Cell Distribution Width 13.3 % (11.6-17.2); White Blood Count 7.9 th/mm3 (4.0-11.0)
[2018-01-26 21:23] LABS: Activated Partial Thrombo Time 26.2 sec (24.3-30.1); Prothrombin Time 9.7 sec (9.8-11.6)
[2018-01-26 21:28] LABS: Alanine Aminotransferase 40 U/L (10-53)
[2018-01-26 21:31] LABS: Alkaline Phosphatase 93 U/L (45-117); Total Protein 8.2 g/dL (6.4-8.2)
[2018-01-26 21:32] LABS: Anion Gap 12 meq/L (5-15); Aspartate Aminotransferase 32 U/L (15-37); Blood Urea Nitrogen 15 mg/dL (7-18); Calcium 9.1 mg/dL (8.5-10.1); Carbon Dioxide 22.5 meq/L (21.0-32.0); Chloride 105 meq/L (98-107); Glomerular Filtration Rate 62 mL/min (>89); Glucose,Random 114 mg/dL (74-106); Lipase 169 U/L (73-393); Sodium 139 meq/L (136-145)
[2018-01-26] MEDS ORDERED: Sincalide Inj 5 MCG Vial ONE (23:00)
--- NOTE | 2018-01-27 00:11 | NM ---
EXAM DATE: 01/26/2018 8:49 PM EDT AGE/SEX: 52 years / Female INDICATIONS: Right upper quadrant pain, right flank pain and right sided chest pain. CLINICAL DATA: This is the patient's initial encounter. Patient reports that signs and symptoms have been present for 1 month and indicates a pain score of 2/10. MEDICAL/SURGICAL HISTORY: . Hiatal hernia and left ovarian mass. . Partial hysterectomy, tonsi llectomy, and foot surgery. COMPARISON: No prior exams available for comparison. DOSE: 4.1 mCi Tc-99m mebrofenin i.v. Medication: 1.8 mcg Cholecystokinin IV Atypical symptomatic response Cholecystokinin was administered by slow infusion over 8 minutes beginning at 60 minutes. TECHNIQUE: Following the intravenous administration of radiotracer, dynamic sequential images were pe rformed with continuous acquisition. Time-activity curves were generated. FINDINGS: Hepatic Kinetics: There is prompt uptake of radiotracer in the liver. No focal defects are seen. Ther e is normal rate of washout from the hepatic parenchyma. Biliary Clearance: Activity is first seen in the extrahepatic biliary system at 20 minutes. There is normal excretion into the small bowel. Gallbladder: Activity is first seen in the gallbladder at 30 minutes. Post-CCK: After CCK administration, there is emptying of the gallbladder with a 40% ejection fraction . Common bile duct kinetics are normal and there is no evidence of biliary obstruction. Atypical sym ptomatic response after cholecystokinin infusion. Biliary-Enteric Reflux: None observed. CONCLUSION: 1. Negative biliary scan Electronically signed by: Elvin Sargent MD 01/27/2018 12:10 AM EDT
[2018-01-27] MEDS ORDERED: Morphine Sulfate Inj 2 MG/ML Vial IV.PUSH ONE (00:13)
[2018-01-27] MEDS ORDERED: Bisacodyl 10 MG Supp RECTAL PRN (00:31)
[2018-01-27 00:35] LABS: Bacteria,Urine Rare /hpf; Bilirubin,Urine Negative (Negative); Clarity,Urine Clear (Clear); Color,Urine Straw (Yellw/Straw); Glucose,Urine (UA) Negative (Negative); Leukocyte Esterase,Urine Negative (Negative); Mucus,Urine Few /lpf (Occasional); Nitrite,Urine Negative (Negative); Specific Gravity,Urine 1.013 (1.002-1.035)
--- NOTE | 2018-01-27 00:38 | P.HP ---
History of Present Illness Service: [facility] Primary Care Physician: UNKNOWN History of Present Illness: 52-year-old female with past medical history significant for hiatal hernia, GERD and hyperlipidemia presents the emergency department for evaluation of abdominal pain. The patient reports she was last seen in the ED on Tuesday night where she had an ACS rule out which was negative. She endorses abdominal pain since Tuesday with associated nausea and vomiting. She states the pain radiates to her right shoulder. She also endorses subjective fever/chills. She was advised to come to the emergency department by her surgeon, Dr. Stockton , for a HIDA scan and possible cholecystectomy. Inpatient Certification: I certify that the inpatient services were ordered in accordance with Medicare regulations governing the order. This includes certification that hospital inpatient services are reasonable and necessary and in the case of services not specified as inpatient-only under 42 CFR 419.22(n), that they are appropriately provided as inpatient services in accordance to with the 2-midnight benchmark under 43 CFR 412.3(e) Review of Systems All other systems reviewed negative except as stated [facility] - History History Provided By: Patient - Medical History Medical History: Medical History (Last Updated 01/27/18 @ 00:36 by Jaclyn Prince MD) GERD (gastroesophageal reflux disease) Hyperlipidemia Hiatal hernia Ovarian mass, left - Surgical History Surgical History: Surgical History (Last Reviewed 01/27/18 @ 00:36 by Jaclyn Prince MD) History of foot surgery History of partial hysterectomy History of tonsillectomy - Family History Family History: Family History (Last Updated 01/27/18 @ 00:36 by Jaclyn Prince MD) Other Coronary artery disease - Tobacco History Second Hand Smoke Exposure: No Smoking Status: Never smoker - Alcohol History How Often Do You Have a Drink Containing Alcohol: 2 to 4 times a month - Substance Use History Substance History: No History of Abuse - Travel History Recent Travel in the [place] Within the Last 8 Weeks: No Recent Travel Out of the Country Within the Last 8 Weeks: No - Immunization History Tetanus Immunization: Unsure Hx Influenza Vaccine This Season: No Medications and Allergies Active Medications: Active Medications Al Hydroxide/Mg Hydroxide (Milk Of Magnesia Liq) 30 ml PO Q12H PRN PRN Reason: Mild Constipation Bisacodyl (Dulcolax Supp) 10 mg RECTAL DAILY PRN PRN Reason: SEVERE CONSITIPATION Sodium Chloride (Ns Inj) 1,000 mls @ 125 mls/hr IV.CONT .Q8H KOJO Stop: 01/27/18 04:44 Last Admin: 01/26/18 21:23 Dose: 125 mls/hr Sodium Chloride (Ns Inj) 1,000 mls @ 100 mls/hr IV.CONT .Q10H KOJO Lactulose (Lactulose Liq) 30 ml PO DAILY PRN PRN Reason: SEVERE CONSITIPATION Morphine Sulfate (Morphine Inj) 2 mg IV.PUSH Q4H PRN PRN Reason: pain 6-10 Ondansetron HCl (Zofran Inj) 4 mg IV.PUSH Q6H PRN PRN Reason: NAUSEA OR VOMITING Pantoprazole Sodium (Protonix Inj) 40 mg IV.PUSH Q24H KOJO Senna/Docusate Sodium (Daria-Colace) 1 tab PO BID KOJO Sennosides (Senokot) 17.2 mg PO Q12H PRN PRN Reason: Moderate Constipation Allergies Allergy/AdvReac Type Severity Reaction Status Date / Time hydromorphone Allergy Severe N/V, SOB, Unverified 01/21/17 18:49 SHAKY *MDRO Multi-Drug Resistant AdvReac Unknown Uncoded 01/21/17 18:49 Organism Home Medications Medication Instructions Recorded Confirmed Type hydroxyzine pamoate [Vistaril] 25 mg PO Q6-8H PRN 01/24/18 01/26/18 History omeprazole 20 mg PO DAILY 01/24/18 01/26/18 History rosuvastatin [Crestor] 20 mg PO DAILY 01/24/18 01/26/18 History Exam Vital signs: Vital Signs 01/26/18 20:22 01/26/18 20:39 01/27/18 00:14 Temperature 97.4 F L Pulse Rate 102 H 92 H 75 Respiratory Rate 16 18 22 Blood Pressure 153/78 H 167/83 H 127/84 Pulse Oximetry 97 96 97 Intake & Output 01/26/18 01/26/18 01/27/18 06:59 18:59 06:59 Weight 87.997 kg Narrative: Gen.: No acute distress Head: Normocephalic. Atraumatic. EENT: Pupils equal round and reactive to light. Nose without drainage. Airway intact. Throat without injection. Cardiovascular: Regular rate and rhythm. No murmurs, rubs or gallops. Respiratory: Lungs clear to auscultation bilaterally. No wheezes or rhonchi. Abdomen: Soft, diffusely tender to palpation, nondistended. No peritoneal signs. Musculoskeletal: No gross deformities. No edema. Skin: No obvious rashes or erythema. Neuro: Sensory and motor grossly intact. Cranial nerves II through XII grossly intact. Results - Labs CBC & Chem 7: 01/26/18 20:55 01/26/18 20:55 Labs: Laboratory Results - last 24 hr 01/26/18 01/26/18 01/26/18 20:55 20:55 20:55 WBC 7.9 RBC 4.83 Hgb 14.5 Hct 42.3 MCV 87.6 MCH 30.0 MCHC 34.2 RDW 13.3 Plt Count 286 MPV 6.6 L Neut % (Auto) 48.8 Lymph % (Auto) 37.9 [place] % (Auto) 10.5 H Eos % (Auto) 1.9 Baso % (Auto) 0.9 Neut # (Auto) 3.9 Lymph # (Auto) 3.0 [place] # (Auto) 0.8 Eos # (Auto) 0.2 Baso # (Auto) 0.1 WBC Differential . Differential Comment Auto diff final PT 9.7 L INR 1.0 APTT 26.2 Sodium Potassium Chloride Carbon Dioxide Anion Gap BUN Creatinine Estimated GFR Random Glucose Calcium Total Bilirubin AST ALT Alkaline Phosphatase Troponin I Less than 0.02 L Total Protein Albumin Lipase 01/26/18 20:55 WBC RBC Hgb Hct MCV MCH MCHC RDW Plt Count MPV Neut % (Auto) Lymph % (Auto) [place] % (Auto) Eos % (Auto) Baso % (Auto) Neut # (Auto) Lymph # (Auto) [place] # (Auto) Eos # (Auto) Baso # (Auto) WBC Differential Differential Comment PT INR APTT Sodium 139 Potassium 4.0 Chloride 105 Carbon Dioxide 22.5 Anion Gap 12 BUN 15 Creatinine 0.96 Estimated GFR 62 L Random Glucose 114 H Calcium 9.1 Total Bilirubin 0.4 AST 32 ALT 40 Alkaline Phosphatase 93 Troponin I Total Protein 8.2 D Albumin 4.0 Lipase 169 - Imaging Impressions Bile Acid Absorption NM 01/26/18 20:49 CONCLUSION: 1. Negative biliary scan Caprini VTE Risk Assessment Caprini VTE Risk Assessment: No/Low Risk (score <= 1) Caprini Risk Assessment Model: Point Value = 1 Point Value = 2 Point Value = 3 Point Value = 5 Age 41-60 Minor surgery BMI > 25 kg/m2 Swollen legs Varicose veins or History of unexplained or recurrent spontaneous Oral contraceptives or hormone replacement Sepsis (< 1 month) Serious lung disease, including pneumonia (< 1 month) Abnormal pulmonary function Acute myocardial infarction Congestive heart failure (< 1 month) History of inflammatory bowel disease Medical patient at bed rest Age 61-74 Arthroscopic surgery Major open surgery (> 45 min) Laparoscopic surgery (> 45 min) Malignancy Confined to bed (> 72 hours) Immobilizing plaster cast Central venous access Age >= 75 History of VTE Family history of VTE Factor V Leiden Prothrombin [id number] Lupus anticoagulant Anticardiolipin antibodies Elevated serum homocysteine Heparin-induced thrombocytopenia Other congenital or acquired thrombophilia Stroke (< 1 month) Elective arthroplasty Hip, pelvis, or leg fracture Acute spinal cord injury (< 1 month) Prophylaxis Regimen: Total Risk Factor Score Risk Level Prophylaxis Regimen 0-1 Low Early ambulation 2 Moderate Order ONE of the following: *Sequential Compression Device (SCD) *Heparin 5000 units SQ BID 3-4 Higher Order ONE of the following medications: *Heparin 5000 units SQ TID *Enoxaparin/Lovenox 40 mg SQ daily (WT < 150 kg, CrCl > 30 mL/min) *Enoxaparin/Lovenox 30 mg SQ daily (WT < 150 kg, CrCl > 10-29 mL/min) *Enoxaparin/Lovenox 30 mg SQ BID (WT < 150 kg, CrCl > 30 mL/min) AND/OR *Sequential Compression Device (SCD) 5 or more Highest Order ONE of the following medications: *Heparin 5000 units SQ TID (Preferred with Epidurals) *Enoxaparin/Lovenox 40 mg SQ daily (WT < 150 kg, CrCl > 30 mL/min) *Enoxaparin/Lovenox 30 mg SQ daily (WT < 150 kg, CrCl > 10-29 mL/min) *Enoxaparin/Lovenox 30 mg SQ BID (WT < 150 kg, CrCl > 30 mL/min) AND *Sequential Compression Device (SCD) Assessment and Plan - Plan Assessment/plan: 1. Abdominal pain HIDA scan negative CT of the abdomen/pelvis done 2 days ago in the emergency department negative for acute process Patient underwent endoscopic with Dr. Gaytan approximately 1 month ago which showed hiatal hernia for which she is scheduled to have surgery on 03/03 Patient's surgeon, Dr. Stockton consulted, appreciate assistance 2. Hiatal hernia/GERD IV Protonix 3. Hyperlipidemia Patient reports adverse reaction to statin Will follow-up as an outpatient with her primary care provider ROSALIE N.p.o. Electrolytes: Monitor and replete as needed NS at 100 cc/hour
[2018-01-27] MEDS ORDERED: Sodium Chloride 0.9% 2 ML Flush PRN IV.FLUSH (00:52)
[2018-01-27] MEDS ORDERED: Pantoprazole Inj 40 MG Vial IV.PUSH SCH (01:00)
[2018-01-27] MEDS: Sod Chloride 0.9% Inj 1,000 ML IV.CONT SCH ×3 (02:06→14:16)
[2018-01-27] MEDS: Morphine Inj 4 MG/ML Vial IV.PUSH PRN ×4 (05:46→19:58)
--- NOTE | 2018-01-27 09:51 | P.PN ---
Subjective Interval history: Follow-up for biliary colic, abdominal pain. Patient reports continued right upper quadrant abdominal pain with radiation into the right chest and shoulder, described as a constant 9/10 pain. She does get some relief to 6/10 with pain medications. She reports intermittent episodes of nausea, mostly controlled with antibiotics. Denies any fevers or chills today, but did have some yesterday. She has not had a bowel movement. Denies any other medical complaints at this time. Physical Exam Vital signs: Vital Signs 01/26/18 20:22 01/26/18 20:39 01/27/18 00:14 Temperature 97.4 F L Pulse Rate 102 H 92 H 75 Respiratory Rate 16 18 22 Blood Pressure 153/78 H 167/83 H 127/84 Pulse Oximetry 97 96 97 01/27/18 01:29 01/27/18 03:43 01/27/18 08:00 Temperature 98.1 F 98 F 97.7 F Pulse Rate 79 78 63 Respiratory Rate 16 17 24 Blood Pressure 112/63 103/60 123/64 Pulse Oximetry 96 94 L 96 Intake & Output 01/26/18 01/27/18 01/27/18 18:59 06:59 18:59 Intake Total 375 / 375 Balance 375 / 375 Weight 87.997 kg Intake: IV 375 / 375 NS Inj 1,000 ML @ 125 mls/hr IV 375 / 375 .CONT .Q8H [facility] Rx#:[id number] Other: # Voids 2 Date of Last Bowel Movement 01/26/18 Weight On Admission 87.997 kg Narrative: GENERAL: Well-nourished, well-developed pleasant middle-aged female patient in [facility]. SKIN: Warm and dry. No rash. HEENT: Normocephalic. Atraumatic. Pupils equal and round. Mucous membranes pink and moist. CARDIOVASCULAR: Regular rate and rhythm. No murmur appreciated. RESPIRATORY: No accessory muscle use. Clear to auscultation. Breath sounds equal bilaterally. GASTROINTESTINAL: Abdomen soft, nondistended, right upper quadrant and epigastric tenderness to palpation. Normoactive bowel sounds x4. MUSCULOSKELETAL: No obvious deformities. Extremities without clubbing, cyanosis , or edema. NEUROLOGICAL: Awake and alert. No obvious cranial nerve deficits. Motor grossly within normal limits. Moving all extremities spontaneously. Normal speech. PSYCHIATRIC: Appropriate mood and affect; insight and judgment normal. Results - Labs CBC & Chem 7: 01/26/18 20:55 01/26/18 20:55 Laboratory Results - last 24 hr 01/26/18 01/26/18 01/26/18 20:55 20:55 20:55 WBC 7.9 RBC 4.83 Hgb 14.5 Hct 42.3 MCV 87.6 MCH 30.0 MCHC 34.2 RDW 13.3 Plt Count 286 MPV 6.6 L Neut % (Auto) 48.8 Lymph % (Auto) 37.9 [place] % (Auto) 10.5 H Eos % (Auto) 1.9 Baso % (Auto) 0.9 Neut # (Auto) 3.9 Lymph # (Auto) 3.0 [place] # (Auto) 0.8 Eos # (Auto) 0.2 Baso # (Auto) 0.1 WBC Differential . Differential Comment Auto diff final PT 9.7 L INR 1.0 APTT 26.2 Sodium Potassium Chloride Carbon Dioxide Anion Gap BUN Creatinine Estimated GFR Random Glucose Calcium Total Bilirubin AST ALT Alkaline Phosphatase Troponin I Less than 0.02 L Total Protein Albumin Lipase Urine Color Urine Clarity Urine pH Ur Specific [place] Urine Protein Urine Glucose (UA) Urine Ketones Urine Occult Blood Urine Nitrate Urine Bilirubin Urine Urobilinogen Ur Leukocyte Esterase Urine RBC Urine WBC Urine Bacteria Urine Mucus Micro UA Comment Ur Microscopic Review Urine Culture Comments 01/26/18 01/27/18 20:55 00:21 WBC RBC Hgb Hct MCV MCH MCHC RDW Plt Count MPV Neut % (Auto) Lymph % (Auto) [place] % (Auto) Eos % (Auto) Baso % (Auto) Neut # (Auto) Lymph # (Auto) [place] # (Auto) Eos # (Auto) Baso # (Auto) WBC Differential Differential Comment PT INR APTT Sodium 139 Potassium 4.0 Chloride 105 Carbon Dioxide 22.5 Anion Gap 12 BUN 15 Creatinine 0.96 Estimated GFR 62 L Random Glucose 114 H Calcium 9.1 Total Bilirubin 0.4 AST 32 ALT 40 Alkaline Phosphatase 93 Troponin I Total Protein 8.2 D Albumin 4.0 Lipase 169 Urine Color Straw Urine Clarity Clear Urine pH 6.0 Ur Specific [place] 1.013 Urine Protein Negative Urine Glucose (UA) Negative Urine Ketones Negative Urine Occult Blood Negative Urine Nitrate Negative Urine Bilirubin Negative Urine Urobilinogen Less than 2 Ur Leukocyte Esterase Negative Urine RBC Less than 1 Urine WBC 1 Urine Bacteria Rare H Urine Mucus Few H Micro UA Comment Culture not ind Ur Microscopic Review Not Reportable Urine Culture Comments Culture not ind - Imaging Impressions Bile Acid Absorption NM 01/26/18 20:49 CONCLUSION: 1. Negative biliary scan Assessment and Plan - Plan 52-year-old female with past medical history significant for hiatal hernia, GERD and hyperlipidemia presents the emergency department for evaluation of abdominal pain. Biliary colic/intractable abdominal pain: Patient reports worsening RUQ/ epigastric pain times 1 month, consistent with biliary colic. Patient has had EGD 1 month ago which showed hiatal hernia, planning for surgery 03/[address] Stockton. Also had nuclear stress test 01/24 which was unremarkable. -CT abdomen/pelvis and HIDA scan has been unremarkable, however patient has persistent symptoms -Supportive treatment with IVF, antiemetics prn, pain control with IV morphine as needed -Keep n.p.o. -Consulted general surgery, planning for laparoscopic cholecystectomy today Hiatal hernia/GERD: Acute on chronic -Continue Protonix Hyperlipidemia: Chronic -Patient reports adverse reaction to statin -Outpatient follow-up with PCP DVT prophylaxis: Teds/SCDs, avoid chemical prophylaxis with upcoming surgery Discharge Planning: Going for laparoscopic cholecystectomy this afternoon. Likely discharge tomorrow if tolerating oral intake and cleared by surgery.
--- NOTE | 2018-01-27 09:59 | P.CONGS ---
[facility] Gen Surgery Consult Note Consult date: 01/27/18 Reason for consult: abdominal pain Requesting physician: Jaclyn Prince Narrative: CONSULTATION NOTE FOR SURGICAL ATTENDING, DR. BHARGAV STOCKTON This is a year old female with a past medical history of a hiatal hernia who has been see in the office by Dr. Stockton for evaluation for laparoscopic cholecystectomy. The patient developed increased abdominal pain with associated nausea yesterday and came to the ED. A HIDA scan was done which shows a 40% gallbladder ejection fraction. The patient has been kept NPO and started on IV fluids. A General Surgery consultation has been requested. Review of Systems All other systems reviewed negative except as stated in [facility] - History History Provided By: Patient - Medical History Medical History: Medical History (Last Reviewed 01/27/18 @ 11:46 by Bhargav Stockton MD) GERD (gastroesophageal reflux disease) Hyperlipidemia Hiatal hernia Ovarian mass, left - Surgical History Surgical History: Surgical History (Last Reviewed 01/27/18 @ 11:46 by Bhargav Stockton MD) History of foot surgery History of partial hysterectomy History of tonsillectomy - Family History Family History: Family History (Last Reviewed 01/27/18 @ 11:46 by Bhargav Stockton MD) Other Coronary artery disease - Social History I have reviewed the patient's Social History: Yes - Tobacco History Second Hand Smoke Exposure: No Smoking Status: Never smoker - Alcohol History How Often Do You Have a Drink Containing Alcohol: 2 to 4 times a month - Substance Use History Substance History: No History of Abuse - Travel History Recent Travel in the [place] Within the Last 8 Weeks: No Recent Travel Out of the Country Within the Last 8 Weeks: No - Immunization History Tetanus Immunization: Unsure Hx Influenza Vaccine This Season: No Medications and Allergies Allergies Allergy/AdvReac Type Severity Reaction Status Date / Time No Known Allergies Allergy Verified 01/27/18 00:48 Home Medications Medication Instructions Recorded Confirmed Type hydroxyzine pamoate [Vistaril] 25 mg PO Q6-8H PRN 01/24/18 01/26/18 History omeprazole 20 mg PO DAILY 01/24/18 01/26/18 History rosuvastatin [Crestor] 20 mg PO DAILY 01/24/18 01/26/18 History Active Medications: Active Medications Al Hydroxide/Mg Hydroxide (Milk Of Magnesia Liq) 30 ml PO Q12H PRN PRN Reason: Mild Constipation Bisacodyl (Dulcolax Supp) 10 mg RECTAL DAILY PRN PRN Reason: SEVERE CONSITIPATION Sodium Chloride (Ns Inj) 1,000 mls @ 100 mls/hr IV.CONT .Q10H KOJO Last Admin: 01/27/18 02:06 Dose: 100 mls/hr Lactulose (Lactulose Liq) 30 ml PO DAILY PRN PRN Reason: SEVERE CONSITIPATION Morphine Sulfate (Morphine Inj) 2 mg IV.PUSH Q4H PRN PRN Reason: pain 6-10 Last Admin: 01/27/18 05:46 Dose: 2 mg Ondansetron HCl (Zofran Inj) 4 mg IV.PUSH Q6H PRN PRN Reason: NAUSEA OR VOMITING Last Admin: 01/27/18 05:50 Dose: 4 mg Pantoprazole Sodium (Protonix Inj) 40 mg IV.PUSH Q24H KOJO Last Admin: 01/27/18 01:02 Dose: 40 mg Senna/Docusate Sodium (Daria-Colace) 1 tab PO BID [facility] Sennosides (Senokot) 17.2 mg PO Q12H PRN PRN Reason: Moderate Constipation Sodium Chloride (Ns Flush) 2 ml IV.FLUSH BID KOJO Sodium Chloride (Ns Flush) 2 ml IV.FLUSH PRN PRN PRN Reason: FLUSH AFTER USING IV ACCESS Exam Vital signs: Vital Signs 01/26/18 20:22 01/26/18 20:39 01/27/18 00:14 Temperature 97.4 F L Pulse Rate 102 H 92 H 75 Respiratory Rate 16 18 22 Blood Pressure 153/78 H 167/83 H 127/84 Pulse Oximetry 97 96 97 01/27/18 01:29 01/27/18 03:43 01/27/18 08:00 Temperature 98.1 F 98 F 97.7 F Pulse Rate 79 78 63 Respiratory Rate 16 17 24 Blood Pressure 112/63 103/60 123/64 Pulse Oximetry 96 94 L 96 Intake & Output 01/26/18 01/27/18 01/27/18 18:59 06:59 18:59 Intake Total 375 / 375 Balance 375 / 375 Weight 87.997 kg Intake: IV 375 / 375 NS Inj 1,000 ML @ 125 mls/hr IV 375 / 375 .CONT .Q8H [facility] Rx#:[id number] Other: # Voids 2 Date of Last Bowel Movement 01/26/18 Weight On Admission 87.997 kg Narrative: GENERAL: Very pleasant 52 year old female resting in bed in no acute distress. SKIN: Warm and dry. HEAD: Atraumatic. Normocephalic. EYES: Pupils equal and round. No scleral icterus. No injection or drainage. ENT: No nasal bleeding or discharge. Mucous membranes pink and moist. NECK: Trachea midline. CARDIOVASCULAR: Regular rate and rhythm. RESPIRATORY: No accessory muscle use. Clear to auscultation. Breath sounds equal bilaterally. GASTROINTESTINAL: Abdomen soft, nondistended. RUQ tenderness with palpation. Well healed low transverse incision. MUSCULOSKELETAL: Extremities without clubbing, cyanosis, or edema. No obvious deformities. NEUROLOGICAL: Awake and alert. No obvious cranial nerve deficits. Motor grossly within normal limits. Five out of 5 muscle strength in the arms and legs. Normal speech. PSYCHIATRIC: Appropriate mood and affect; insight and judgment normal. Results - Labs 01/26/18 20:55 01/26/18 20:55 Laboratory Results - last 24 hr 01/26/18 01/26/18 01/26/18 20:55 20:55 20:55 WBC 7.9 RBC 4.83 Hgb 14.5 Hct 42.3 MCV 87.6 MCH 30.0 MCHC 34.2 RDW 13.3 Plt Count 286 MPV 6.6 L Neut % (Auto) 48.8 Lymph % (Auto) 37.9 [place] % (Auto) 10.5 H Eos % (Auto) 1.9 Baso % (Auto) 0.9 Neut # (Auto) 3.9 Lymph # (Auto) 3.0 [place] # (Auto) 0.8 Eos # (Auto) 0.2 Baso # (Auto) 0.1 WBC Differential . Differential Comment Auto diff final PT 9.7 L INR 1.0 APTT 26.2 Sodium Potassium Chloride Carbon Dioxide Anion Gap BUN Creatinine Estimated GFR Random Glucose Calcium Total Bilirubin AST ALT Alkaline Phosphatase Troponin I Less than 0.02 L Total Protein Albumin Lipase Urine Color Urine Clarity Urine pH Ur Specific [place] Urine Protein Urine Glucose (UA) Urine Ketones Urine Occult Blood Urine Nitrate Urine Bilirubin Urine Urobilinogen Ur Leukocyte Esterase Urine RBC Urine WBC Urine Bacteria Urine Mucus Micro UA Comment Ur Microscopic Review Urine Culture Comments 01/26/18 01/27/18 20:55 00:21 WBC RBC Hgb Hct MCV MCH MCHC RDW Plt Count MPV Neut % (Auto) Lymph % (Auto) [place] % (Auto) Eos % (Auto) Baso % (Auto) Neut # (Auto) Lymph # (Auto) [place] # (Auto) Eos # (Auto) Baso # (Auto) WBC Differential Differential Comment PT INR APTT Sodium 139 Potassium 4.0 Chloride 105 Carbon Dioxide 22.5 Anion Gap 12 BUN 15 Creatinine 0.96 Estimated GFR 62 L Random Glucose 114 H Calcium 9.1 Total Bilirubin 0.4 AST 32 ALT 40 Alkaline Phosphatase 93 Troponin I Total Protein 8.2 D Albumin 4.0 Lipase 169 Urine Color Straw Urine Clarity Clear Urine pH 6.0 Ur Specific [place] 1.013 Urine Protein Negative Urine Glucose (UA) Negative Urine Ketones Negative Urine Occult Blood Negative Urine Nitrate Negative Urine Bilirubin Negative Urine Urobilinogen Less than 2 Ur Leukocyte Esterase Negative Urine RBC Less than 1 Urine WBC 1 Urine Bacteria Rare H Urine Mucus Few H Micro UA Comment Culture not ind Ur Microscopic Review Not Reportable Urine Culture Comments Culture not ind - Imaging Imaging: ITS Impressions Bile Acid Absorption NM 01/26/18 20:49 CONCLUSION: Ejection fraction 40% patient have symptomatology consistent with her biliary colic after injection of CCK HIDA scan: report reviewed, image reviewed Assessment and Plan - Assessment (1) Gallbladder colic Code(s): K80.20 - Calculus of gallbladder without cholecystitis without obstruction Status: Acute Plan: 52 year old female with RUQ abdominal pain; biliary colic -Plan for laparoscopic cholecystectomy today -Obtain consents -NPO -IVF -Zosyn x1 dose ordered for preop -Discussed plan with Shelli BONNER -Thank you for this consult; We will continue to follow - Plan Discussed Condition With: Dr. Kath Ventura - Attending Attestation CONSULTATION NOTE FOR SURGICAL ATTENDING, DR. BHARGAV STOCKTON Patient was being worked up for possible hiatal hernia repair but most of her symptomatology was consistent with biliary colic. We are attempting to get the workup completed however her symptoms became much worse requiring hospitalization we got the HIDA scan which showed a decreased ejection fraction with reproducing her symptomatology consistent with biliary colic. She was recently admitted to the hospital earlier in the week with severe right upper quadrant chest pain cardiac cardiac workup was completed which was completely negative her symptomatology appear to be consistent with gallbladder dyskinesia Her exam is consistent with biliary colic with tenderness in the right upper quadrant. We will plan to proceed with laparoscopic cholecystectomy reevaluate her hiatal hernia as an outpatient basis I agree with above assessment and plan. The exam, history, and the medical decision-making described in the above note were completed with the assistance of the mid-level provider. I reviewed and agree with the findings presented. I attest that I had a [id number] encounter with the patient on the same day, and personally performed and documented my assessment and findings in the medical record. The following services were provided during this hospital visit: Chart data review, vital sign assessments/reviewing monitor data Review of consultations notes if present. Medication orders/review and/or management Ordering and/or reviewing lab tests Ordering and/or interpreting/reviewing x-rays and/or diagnostic studies Care of the patient and discussion of the patient with the care team Documentation time To help prompt me to consider important information that might be impacting today's encounter and assessment, Information from prior notes written by myself or my colleagues may have been "brought forward/copy and pasted" into today's note.
[2018-01-27] MEDS: Sodium Chloride 0.9% 2 ML Flush BID IV.FLUSH SCH ×2 (10:04→20:07)
[2018-01-27] MEDS: Senna/Docusate Sodium 8.6/50 MG Tablet PO SCH ×2 (10:04→20:08)
[2018-01-27] MEDS ORDERED: Piperacil/Tazo 3.375 GM Premix 50 ML IV.SIG ONE (11:00)
[2018-01-27] MEDS ORDERED: Bupivacaine/Epinephrine 0.5% Inj 50 ML Vial ONE (11:21)
--- NOTE | 2018-01-27 11:55 | ECG ---
Date Performed: 01/26/2018 Time Performed: 20:34:10 PTAGE: 52 years EKG: SINUS TACHYCARDIA LOW QRS VOLTAGE IN PRECORDIAL LEADS NONSPECIFIC T-WAVE ABNORMALITY ABNORM AL RHYTHM ECG PREVIOUS TRACING 01/24/18.06 Since the previous tracing, no significant change noted DOCTOR: Elvin Townsend Interpretating Date/Time 01/27/2018 11:51:57
[2018-01-27] MEDS ORDERED: Sugammadex Inj 200 MG/2 ML Vial IV.PUSH ONE (12:10)
[2018-01-27] MEDS ORDERED: Dexamethasone Inj 20 MG/5 ML Vial ONE (12:10)
[2018-01-27] MEDS ORDERED: Lidocaine PF 1% Inj 5 ML Syringe OTHER ONE (12:20)
[2018-01-27] MEDS ORDERED: Chlorhexidine Gluconate 2% 1 Pack (2 Cloths) TOPICAL ONE (12:27)
[2018-01-27] MEDS ORDERED: Metoprolol Tartrate 25 MG Tablet PO ONE (12:27)
[2018-01-27] MEDS ORDERED: Sodium Chlor 0.9% Inj 500 ML IV.SIG SCH (13:00)
--- NOTE | 2018-01-27 13:21 | P.OP ---
- Preoperative Diagnosis (1) Gallbladder colic - Postoperative Diagnosis (1) S/P laparoscopic cholecystectomy (2) Gallbladder colic Date of procedure: 01/27/18 Procedure: Laparoscopic cholecystectomy Anesthesia: GETA Surgeon: Bhargav Stockton MD Pathology: other (Gallbladder) Operation and Findings: PREOPERATIVE DIAGNOSIS: Biliary colic with gallbladder dyskinesia POSTOP DIAGNOSIS: Biliary colic with gallbladder dyskinesia Status post laparoscopic cholecystectomy Bilateral ovarian cysts PROCEDURE: Laparoscopic Cholecystectomy ANESTHESIA: General SURGEON: Bhargav ROSAS. please refer to the operating room records PROCEDURE DETAILS The patient was brought to the operating room and after proper identification. The patient was intubated after the induction of appropriate anesthesia. The patient remained under general anesthesia for the duration of the case. The patient was prepped with an antiseptic over the abdomen in the usual fashion and then he was draped in the usual sterile fashion. Following the draping, the pneumoperitoneum was established via Veress needle after saline load test had been performed via a infra-umbilical incision. After direct visualization of the peritoneum, the trocar was introduced and insufflation was begun. After appropriate insufflation a scope was inserted and the abdomen was visually inspected to be benign in gross visualization. Next, another 5 mm port was placed just below the xiphoid. This was then followed by the placement of 5 mm ports in between the 2 previously placed ports. All port sites were anesthetized with a Marcaine solution. The gallbladder was easily identified. There were a few adhesions. No intraabdominal fluid. Upon retraction of the gallbladder, the infundibulum was identified. After some blunt dissection, the cystic duct was identified and then skeletonized using the small grasper. After appropriate identification of the cystic duct, cystic duct was somewhat small it was clipped 3 times with 2 clips staying, 1 clip going. It was then transected with scissors. This was performed without any complication. Next, a cystic artery was very small or nonexistent. Following this, the gallbladder was easily retracted back and electrocautery was used to dissect the gallbladder fossa. There was a well- established plane. After application of the clips, no further bleeding from this site was appreciated. Hemostasis was attained on the gallbladder fossa using a small amount of electrocautery. Following the removal of the gallbladder from the gallbladder fossa, it was placed in an endobag and subsequently removed from the supraumbilical port site. We double checked for hemostasis at the cystic artery. Also checked the cystic duct stump which showed no bile leakage. Recheck down the pelvis the appendix appears normal she has bilateral ovarian cysts worse on the left than the right with just trying to down to 5 the ovary 1 of the cyst did rupture it was small. All ports were then removed The infra-umbilical fascia was closed directly with 0 Vicryl and then the dermis was closed at all 3 incision sites with a 4-0 absorbable monofilament in a running subcuticular manner. The fascia was closed in a simple interrupted manner. Steri-Strips and dressings were placed over the incision sites. The patient was awakened from anesthesia. The patient was returned to post-anesthesia care unit in a stable condition. DETAIL SPECIFIC TO THIS PROCEDURE: Normal appendix bilateral ovarian cyst left greater than right Bhargav Stockton M.D.
[2018-01-27] MEDS ORDERED: fentaNYL Citrate Inj 100 MCG/2 ML Ampul ONE (13:39)
[2018-01-27] MEDS ORDERED: *Promethazine Inj 25 MG/ML Vial PERIprocedural use ONLY ONE (13:58)
[2018-01-27] MEDS ORDERED: *morphine SULFATE 4 MG/ML PERIprocedure ONLY ONE (14:33)
[2018-01-27] MEDS ORDERED: Acetaminophen 325 MG Tablet PO PRN (16:10)
[2018-01-27] MEDS: Ibuprofen 600 MG Tablet PO PRN (16:49)
[2018-01-27] MEDS: oxyCODONE/Acetaminophen 10/325 Tablet PO PRN ×2 (18:41→22:52)
[2018-01-27] MEDS ORDERED: Melatonin 5 MG Tablet PO ONE (23:01)
[2018-01-28] MEDS: Morphine Inj 4 MG/ML Vial IV.PUSH PRN ×2 (00:05→04:10)
[2018-01-28] MEDS: Ibuprofen 600 MG Tablet PO PRN (00:06)
[2018-01-28] MEDS: Sod Chloride 0.9% Inj 1,000 ML IV.CONT SCH (00:30)
[2018-01-28] MEDS: oxyCODONE/Acetaminophen 10/325 Tablet PO PRN ×3 (03:13→11:36)
[2018-01-28 08:25] VITALS: BP 117/56; PULSE 73; RESP 16; TEMP 97.4; O2SAT 94
[2018-01-28] MEDS ORDERED: Pantoprazole Sodium 20 MG DR Tablet PO SCH (09:00)
[2018-01-28 09:28] LABS: Baso % (Auto) 0.4 % (0.0-2.0); Eos % (Auto) 0.2 % (0.0-4.0); Hematocrit 37.4 % (35.0-46.0); Hemoglobin 12.7 gm/dL (11.6-15.3); Lymph # (Auto) 1.1 th/mm3 (1.0-4.8); Lymph % (Auto) 11.1 % (9.0-44.0); Mean Corpuscular Hemoglobin 29.6 pg (27.0-34.0); Mean Corpuscular Volume 87.2 fL (80.0-100.0); Mean Platelet Volume 6.7 fL (7.0-11.0); Mono # (Auto) 0.9 th/mm3 (0.0-0.9); Mono % (Auto) 9.2 % (0.0-8.0); Neut % (Auto) 79.1 % (16.0-70.0); Platelet Count 257 th/mm3 (150-450); Red Blood Count 4.29 mil/mm3 (4.00-5.30); Red Cell Distribution Width 13.2 % (11.6-17.2)
[2018-01-28 10:02] LABS: Alanine Aminotransferase 55 U/L (10-53); Albumin 3.8 g/dL (3.4-5.0); Anion Gap 13 meq/L (5-15); Aspartate Aminotransferase 73 U/L (15-37); Blood Urea Nitrogen 9 mg/dL (7-18); Carbon Dioxide 21.1 meq/L (21.0-32.0); Chloride 105 meq/L (98-107); Glomerular Filtration Rate 83 mL/min (>89); Glucose,Random 103 mg/dL (74-106); Potassium 3.7 meq/L (3.5-5.1); Sodium 139 meq/L (136-145)
[2018-01-28 10:04] LABS: Alkaline Phosphatase 73 U/L (45-117); Total Protein 7.8 g/dL (6.4-8.2)
--- NOTE | 2018-01-28 11:56 | P.DS ---
Date of admission: 01/27/18 00:31 Primary care physician: UNKNOWN Attending physician on discharge: Marilou Stevens Anticipated date of discharge: 01/28/18 Brief History from admission: 52-year-old female with past medical history significant for hiatal hernia, GERD and hyperlipidemia presents the emergency department for evaluation of abdominal pain. The patient reports she was last seen in the ED on Tuesday night where she had an ACS rule out which was negative. She endorses abdominal pain since Tuesday with associated nausea and vomiting. She states the pain radiates to her right shoulder. She also endorses subjective fever/chills. She was advised to come to the emergency department by her surgeon, Dr. Stockton , for a HIDA scan and possible cholecystectomy. DS: Medications - Discharge Medications Prescriptions: oxycodone-acetaminophen 1 tab PO Q4-6H PRN 3 Days #25 tab PRN Reason: Pain pantoprazole [Protonix] 20 mg PO DAILY #30 tab DS: Summary Hospital Course: 52-year-old female with past medical history significant for hiatal hernia, GERD and hyperlipidemia who presented to the emergency department on 01/27 due to abdominal pain. Additionally patient also had fevers and chills and was advised by her surgeon Dr. Stockton to come to the emergency department for HIDA scan and possible cholecystectomy. Patient underwent CT scan of abdomen pelvis and HIDA scan which were unremarkable. General surgery was consulted and patient underwent laparoscopic cholecystectomy by Dr. Stockton on 01/27. Patient is seen and examined this morning in her room with family at bedside appears to be in no acute distress. She denies any further abdominal pain or discomfort. Had breakfast without any nausea or vomiting. Voiding without any dysuria, had a regular bowel movement this morning as well. She denies any fevers, chills, cough, shortness of breath or chest pain. Patient is requesting a prescription for Protonix due to acid reflux, usually takes omeprazole but reports better relief with Protonix. Nurse has called Dr. Stockton and he has cleared patient for discharge. Prescription for Protonix provided, patient to discuss new prescription with her primary care physician. Patient also understands that she will need to follow-up with Dr. Stockton in his office. - Time Spent with Patient Total time spent providing and/or coordinating discharge services: Less than 30 minutes - Quality: VTE Deep Vein Thrombosis/Pulmonary Embolism Present on Admission: No Exam Vital signs: Vital Signs 01/27/18 13:35 01/27/18 13:45 01/27/18 14:00 Temperature 97.2 F L Pulse Rate 81 78 64 Respiratory Rate 20 15 16 Blood Pressure 136/67 117/56 L 118/65 Pulse Oximetry 99 96 94 L 01/27/18 14:15 01/27/18 14:30 01/27/18 14:45 Temperature Pulse Rate 66 65 65 Respiratory Rate 16 16 15 Blood Pressure 112/67 116/67 113/66 Pulse Oximetry 93 L 92 L 94 L 01/27/18 15:00 01/27/18 15:15 01/27/18 16:00 Temperature 97.8 F 97.2 F L Pulse Rate 65 63 73 Respiratory Rate 16 16 17 Blood Pressure 113/66 110/61 120/63 Pulse Oximetry 93 L 94 L 93 L 01/27/18 16:51 01/27/18 19:11 01/27/18 20:00 Temperature 97.4 F L Pulse Rate 91 H Respiratory Rate 18 9 L 19 Blood Pressure 121/59 L Pulse Oximetry 93 L 01/28/18 00:00 01/28/18 04:00 01/28/18 04:12 Temperature 97.4 F L 98.0 F Pulse Rate 75 67 Respiratory Rate 16 16 19 Blood Pressure 113/62 108/59 L Pulse Oximetry 93 L 93 L 01/28/18 08:00 Temperature 97.4 F L Pulse Rate 73 Respiratory Rate 16 Blood Pressure 117/56 L Pulse Oximetry 94 L Intake & Output 01/27/18 01/28/18 01/28/18 18:59 06:59 18:59 Intake Total 2650 / 2650 2206 / 2206 Output Total 155 / 155 1100 / 1100 Balance 2495 / 2495 1106 / 1106 Weight 87.9 kg Intake: IV 1050 / 1050 1506 / 1506 NS Inj 1,000 ML @ 100 mls/hr IV 1000 / 1000 1506 / 1506 .CONT .Q10H KOJO Rx#:[id number] Zosyn 3.375 GM Premix 50 ML @ 50 / 50 100 mls/hr IV.SIG ONCE ONE Rx#: [id number] Oral 600 / 600 700 / 700 Anesthesia Amount 1000 / 1000 Output: Urine 150 / 150 1100 / 1100 Estimated Blood Loss 5 / 5 Other: # Voids 1 Date of Last Bowel Movement 01/26/18 01/26/18 01/26/18 Narrative: GENERAL: Well-nourished, well-developed pleasant middle-aged female patient in [facility]. SKIN: Warm and dry. No rash. HEENT: Normocephalic. Atraumatic. Pupils equal and round. Mucous membranes pink and moist. CARDIOVASCULAR: Regular rate and rhythm. No murmur appreciated. RESPIRATORY: No accessory muscle use. Clear to auscultation. Breath sounds equal bilaterally. GASTROINTESTINAL: Abdomen soft, nondistended. Normoactive bowel sounds x4. Steri-Strips on abdomen dry and intact, Steri-Strip over the umbilicus with dry sanguinous drainage and no visible ecchymosis. MUSCULOSKELETAL: No obvious deformities. Extremities without clubbing, cyanosis , or edema. NEUROLOGICAL: Awake and alert. No obvious cranial nerve deficits. Motor grossly within normal limits. Moving all extremities spontaneously. Normal speech. PSYCHIATRIC: Appropriate mood and affect; insight and judgment normal. Results Procedures completed during hospitalization: Laparoscopic cholecystectomy 01/27/[address] Stockton Pending studies at discharge: Pending at discharge 01/27/18 14:17 Surgical [PTH] Routine Labs on day of discharge: Labs from last 24 hours 01/28/18 01/28/18 07:01 07:01 WBC 10.0 RBC 4.29 Hgb 12.7 Hct 37.4 MCV 87.2 MCH 29.6 MCHC 34.0 RDW 13.2 Plt Count 257 MPV 6.7 L Neut % (Auto) 79.1 H Lymph % (Auto) 11.1 [place] % (Auto) 9.2 H Eos % (Auto) 0.2 Baso % (Auto) 0.4 Neut # (Auto) 8.0 H Lymph # (Auto) 1.1 [place] # (Auto) 0.9 Eos # (Auto) 0.0 Baso # (Auto) 0.0 WBC Differential . Differential Comment Auto diff final Sodium 139 Potassium 3.7 Chloride 105 Carbon Dioxide 21.1 Anion Gap 13 BUN 9 Creatinine 0.74 Estimated GFR 83 L Random Glucose 103 Calcium 9.0 Total Bilirubin 0.5 AST 73 H ALT 55 H Alkaline Phosphatase 73 Total Protein 7.8 Albumin 3.8 - Impressions ITS Impressions Bile Acid Absorption NM 01/26/18 20:49 CONCLUSION: 1. Negative biliary scan Discharge Plan - Discharge Disposition Patient Disposition: 01 Discharge Home - Discharge Condition Condition: Good - Discharge Order Discharge Orders: Discharge Order (Routine); Ordered 01/28/18 Ordered By: Lavon Espinoza General Surgery Clear for Discharge (Routine); Ordered 01/27/18 Ordered By: Bhargav Stockton - Physicians Team Primary Care Provider: UNKNOWN, Attending Provider: Marilou Stevens Other Providers: Blanca Rios ; Surgeons,[facility] ; Bhargav Stockton MD
--- NOTE | 2018-01-28 13:31 | ECG ---
Date Performed: 01/27/2018 Time Performed: 08:07:08 PTAGE: 52 years EKG: Sinus rhythm LOW QRS VOLTAGE IN PRECORDIAL LEADS NONSPECIFIC T-WAVE ABNORMALITY BORDERLINE ECG NO PREVIOUS TRACING DOCTOR: Francis Mane Interpretating Date/Time 01/28/2018 13:19:29
== END 2018-01-28 12:33 | disposition home or self-care (01) ==
LOC: NEPE 20:11 → NEDA 22:43 → INTOOBSV 22:43 → NEPHCDU 01-27 01:11 → N07 01-27 11:39
PROVIDERS: ADMIT Hospitalist; ATTEND Hospitalist